=== PATIENT | female | born 1970 | race African-American/Black ===

== ENCOUNTER 2016-09-06 15:34 | Emergency (ER) | payer BC, OTHER ==
[2016-09-06 15:43] VITALS: BP 111/74; PULSE 86; TEMP 97.5; BMI 32.0
[2016-09-06] MEDS ORDERED: KETOROLAC TROMETHAMINE 60 MG/2 ML VIAL IM ONE (16:52)
[2016-09-06] MEDS ORDERED: KETOROLAC TROMETHAMINE 60 MG/2 ML VIAL ONE (16:54)
--- NOTE | 2016-09-06 17:13 | PDOC ---
History of Present Illness - General Chief Complaint: Sore Throat Stated Complaint: FEVER, THROAT PAIN Time Seen by Provider: 09/06/16 16:33 - History of Present Illness Initial Comments: 09/06/16 16:53 CHIEF COMPLAINT: fever, sore throat, shoulder pain HISTORY OF PRESENT ILLNESS: 46 yo F with hx of herniated discs presents to fast track with sore throat since yesterday and fever since this morning. Patient states she took Tylenol earlier today. She also complains of mild cough, sneezing, and runny nose. She reports working at [employer] and has had some sick customers recently. She also additionally complains of R shoulder pain that she has had for "a couple months." She denies any trauma or injury to the area but states "I often have to hand things out the window to customers and stretch my arm out." No recent travel or sick contacts. 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 Former smoker. Denies alcohol, illicit drug use. SURGICAL HISTORY: Denies ALLERGIES: No known drug allergies REVIEW OF SYSTEMS General/Constitutional: Denies fever or chills. Denies weakness, weight change. HEENT: Denies change in vision. Denies ear pain or discharge. Denies sore throat. Cardiovascular: Denies chest pain or shortness of breath. Respiratory: Denies cough, wheezing, or hemoptysis. Gastrointestinal: Denies nausea, vomiting, diarrhea or constipation. Denies rectal bleeding. Genitourinary: Denies dysuria, frequency, or change in urination. Musculoskeletal: R shoulder pain. Denies joint or muscle swelling or pain. Denies neck or back pain. Skin and breasts: Denies rash or easy bruising. Neurologic: Denies headache, vertigo, loss of consciousness, or loss of sensation. PHYSICAL EXAM General Appearance: Well-appearing, appropriately dressed. No apparent distress , no intoxication. HEENT: Post nasal drip, swollen turbinates. EOMI, PERRLA, normal ENT inspection , normal voice, TMs normal, pharynx normal. No conjunctival pallor. No photophobia, scleral icterus. Neck: Supple. Trachea midline. No tenderness, rigidity, carotid bruit, stridor , lymphadenopathy, or thyromegaly. Respiratory/Chest: Lungs CTAB. Cardiovascular: RRR. S1, S2. Lymphatic: No adenopathy, tenderness. Musculoskeletal/Extremities: Tenderness to anterolateral shoulder. +Neer/ Gates test. +Empty can test. Normal inspection. FROM of all extremities, normal capillary refill. Pelvis Stable. No CVA tenderness. No tenderness to extremities, pedal edema, swelling, erythema or deformity. Integumentary: Appropriate color, dry, warm. No cyanosis, erythema, jaundice or rash Neurologic: automotive wholesale parts advisor II-XII intact. Fully oriented, alert. Appropriate mood/affect. Motor strength 5/5. No appreciable EOM palsy, facial droop or sensory deficit. 09/06/16 17:50 Past History - Past Medical History Allergies/Adverse Reactions: Allergies Allergy/AdvReac Type Severity Reaction Status Date / Time No Known Allergies Allergy Verified 09/06/16 15:40 Home Medications: Ambulatory Orders Ibuprofen 600 mg PO TID PRN #21 tablet 09/06/16 HTN: Yes Hypercholesterolemia: Yes Kidney Stones: Yes Suicide Attempt (Hx): No - Surgical History Cholecystectomy: Yes - Immunization History Immunization Up to Date: Yes - Psycho/Social/Smoking Cessation Hx Anxiety: No Suicidal Ideation: No Smoking History: Never smoked Have you smoked in the past 12 months: No Information on smoking cessation initiated: No Hx Alcohol Use: No Drug/Substance Use Hx: No Substance Use Type: None *Physical Exam - Vital Signs Last Vital Signs Temp Pulse Resp BP Pulse Ox 97.5 F L 86 20 111/74 98 09/06/16 15:41 09/06/16 15:41 09/06/16 15:41 09/06/16 15:41 09/06/16 15:41 Medical Decision Making - Medical Decision Making 09/06/16 17:13 46 yo F with hx of herniated discs presents to fast track with fever, throat pain, and shoulder pain. -Influenza, strep rapid swabs -60 mg Toradol IM Advised patient to take meds as prescribed and f/u with PMD. Advised patient to f/u with orthopedics for further evaluation of shoulder impingement vs rotator cuff injury. Patient verbalized understanding and agrees to plan. *DC/Admit/Observation/Transfer Diagnosis at time of Disposition: Viral syndrome Shoulder pain, right Qualifiers: Chronicity: chronic Qualified Code(s): M25.511 - Pain in right shoulder - Discharge Dispostion Disposition: HOME Condition at time of disposition: Stable Admit: No - Prescriptions Prescriptions: Ibuprofen 600 mg PO TID PRN #21 tablet PRN Reason: Pain Or Fever - Referrals Referrals: Tom Mustafa MD [Staff Physician] - - Patient Instructions Printed Discharge Instructions: DI for Shoulder Pain, DI for Viral Syndrome Additional Instructions: Please take medication as prescribed. Drink plenty of fluids and get lots of rest to recover from your illness. Follow up with your doctor next week if symptoms continue. If you experience persistent fever that does not go away with medication, nausea, vomiting, or you experience shortness of breath, chest pain, dizziness, or any new or worsening symptoms, please return to the ER. - Post Discharge Activity Work/School Note: Back to Work
== END 2016-09-06 18:37 | disposition home or self-care (01) ==
LOC: JERFT 15:34
PROC: 3E0233Z Introduction of Anti-inflammatory into Muscle, Percutaneous Approach (ICD-10-PCS; principal; 2016-09-06)
DX: B34.9 Viral infection, unspecified (principal); M25.511 Pain in right shoulder; Z87.891 Personal history of nicotine dependence
CPT/HCPCS: 87070; 87430; 87804; 99281-25

== ENCOUNTER 2018-04-13 06:14 | Day surgery (SDC) | payer OTHER ==
[2018-02-04 14:25] VITALS: BMI 32.9
[~2018-04-13 06:14] MED LIST: BUPIVACAINE HCL/PF 0.25% (2.5MG/ML) 10 ML VIAL IJ ONE; CEFAZOLIN 2 GM/D5W 2 GM/50 ML ML IVPB ONE; CEFAZOLIN 2 GM/D5W 2 GM/50 ML ML IVPB SCH; IBUPROFEN 800 MG/8 ML IJ IVPB PRN; PHENAZOPYRIDINE HCL 100 MG TABLET (FP) PO ONE
[2018-04-13] MEDS ORDERED: PHENAZOPYRIDINE HCL 100 MG TABLET (FP) PO ONE (07:19)
[2018-04-13] MEDS ORDERED: CEFAZOLIN 2 GM in DEXTROSE 5%-WATER - 100 ML IVPB ONE (07:19)
[2018-04-13] MEDS ORDERED: DEXAMETHASONE SOD PHOSPHATE/PF 10 MG/ML SDV ONE (07:20)
[2018-04-13] MEDS ORDERED: ROPIVACAINE HCL 0.5% 30ML VIAL ONE (07:20)
[2018-04-13] MEDS ORDERED: MIDAZOLAM HCL 2 MG/2 ML SINGLE DOSE VIAL ONE ×2 (07:21)
--- NOTE | 2018-04-13 07:25 | HP ---
History & Physical Update - History History: No Change - Physical Physical: No Change - Assessment Assessment: No Change - Plan Plan: No Change (Initial H&P is located in patient's paper chart. No new complaints or medications. Here today for elective robotic assisted hysterectomy with bilateral salpingectomy)
[2018-04-13] MEDS ORDERED: ceFAZolin SODIUM 1 GM VIAL ONE ×2 (07:28→16:11)
[2018-04-13] MEDS ORDERED: BUPIVACAINE HCL/PF 0.25% (2.5MG/ML) 10 ML VIAL ONE (08:44)
[2018-04-13] MEDS ORDERED: ceFAZolin SODIUM 1 GM VIAL IVPB ONE (09:02)
[2018-04-13] MEDS ORDERED: BUPIVACAINE HCL/PF 0.25% (2.5MG/ML) 10 ML VIAL IJ ONE (10:45)
--- NOTE | 2018-04-13 11:13 | OP ---
Operative Note - Note: Operative Date: 04/13/18 Pre-Operative Diagnosis: Leiomyoma of uterus Operation: Robotic total hysterectomy with bilateral salpingectomy Post-Operative Diagnosis: Same as Pre-op Surgeon: Estefani Best Search Engine Optimization Manager: Lyle Madrigal (Kinga Fortune PA-C 2nd assist) Anesthesiologist/BIOPHYSICS SCIENTIST: Vasu Lindquist Anesthesia: General Specimens Removed: uterus and biltaeral tubes Estimated Blood Loss (mls): 50 Drains, Volume Out (mls): 450 (villareal/orange-pyridium) Fluid Volume Replaced (mls): 750 Operative Report Dictated: Yes
--- NOTE | 2018-04-13 11:14 | SURG ---
Surgery Clinical Appeals Rn Note Clinical Appeals Rn: Lyle Madrigal PA-C Date of Service: 04/13/18 Diagnosis: Leiomyomatous uterus Procedure: Robotic hysterectomy with bilateral salpingectomy I was present for the entirety of the operative procedure. For further detail, please refer to operative report. Visit type - Case Type Case Type: Scheduled - New patient This patient is new to me today: Yes Date on this admission: 04/13/18
[2018-04-13] MEDS ORDERED: PROMETHAZINE HCL 25 MG/1 ML VIAL IVPUSH PRN (12:59)
[2018-04-13] MEDS ORDERED: oxyCODONE HCL 5 MG TABLET PO PRN (12:59)
[2018-04-13] MEDS ORDERED: PATIENT'S OWN MEDICATION (NON-FORMULARY) (Oxycodone Hcl [Oxycodone Hcl] 5 MG) PO PRN (13:29)
[2018-04-13] MEDS: ACETAMINOPHEN 325 MG TABLET (FP) PO SCH ×2 (14:00→18:17)
[2018-04-13] MEDS ORDERED: ENOXAPARIN NA (PORCINE) 40 MG/0.4 ML DISP.SYRIN SQ SCH (14:45)
[2018-04-13] MEDS ORDERED: ONDANSETRON 4 MG/2 ML VIAL IVPUSH PRN (15:06)
[2018-04-13] MEDS ORDERED: DEXTROSE 5%-WATER - 50 ML IVPB ONE (16:11)
[2018-04-13] MEDS: CEFAZOLIN 1 GM in DEXTROSE 5%-WATER - 50 ML IVPB SCH (16:26)
--- NOTE | 2018-04-13 18:08 | OP ---
Operative Note - Note: Operative Date: 04/13/18 Pre-Operative Diagnosis: Leomyomatous Uterus. Anemia. Menorrhagia Operation: Laparoscopic Total Robotic Hysterectomy. Bilateral Salpingectomy Findings: Leiomyomatous Uterus 12 cm Post-Operative Diagnosis: Same as Pre-op Surgeon: Estefani Best Fixed Income Analyst: Lyle Madrigal Anesthesia: General Specimens Removed: Uterus Cervix and bilateral fallopian tubes Estimated Blood Loss (mls): 50 Operative Report Dictated: Yes
[2018-04-13 18:59] LABS: BASO % 0.2 % (0-2.0); EOS % 0.1 % (0-4.5); HEMATOCRIT 35.9 % (32.4-45.2); HEMOGLOBIN 11.3 GM/dL (10.7-15.3); LYMPH % 4.8 % (8-40); MCH 24.1 pg (25.7-33.7); MCHC 31.5 g/dl (32.0-36.0); MEAN CELL VOLUME 76.4 fl (80-96); MEAN PLT VOLUME 10.7 fl (7.5-11.1); MONO % 0.6 % (3.8-10.2); NEUT % 94.3 % (42.8-82.8); PLATELET COUNT 216 K/MM3 (134-434); RDW 16.4 % (11.6-15.6)
[2018-04-13 19:21] LABS: ANISOCYTOSIS 1+; PLATELET ESTIMATE ADEQUATE
[2018-04-13] MEDS: LACTATED RINGERS SOLUTION 1,000 ML IV SCH (21:33)
[2018-04-13] MEDS ORDERED: SERTRALINE HCL 50 MG TABLET (FP) PO SCH (22:00)
[2018-04-14] MEDS ORDERED: ceFAZolin SODIUM 1 GM VIAL ONE (00:47)
[2018-04-14] MEDS ORDERED: DEXTROSE 5%-WATER - 50 ML IVPB ONE (00:47)
[2018-04-14] MEDS: CEFAZOLIN 1 GM in DEXTROSE 5%-WATER - 50 ML IVPB SCH (00:51)
[2018-04-14] MEDS: ACETAMINOPHEN 325 MG TABLET (FP) PO SCH ×3 (00:52→12:11)
[2018-04-14] MEDS: oxyCODONE HCL 5 MG TABLET PO PRN ×3 (01:00→10:48)
--- NOTE | 2018-04-14 05:58 | PN ---
Progress Note (SOAP) - Subjective Chief Complaint: Pt ambulating and voiding DOing well + flatus - Current Medications Current Medications: Active Medications Acetaminophen (Tylenol -) 650 mg PO Q6H [facility] Stop: 04/16/18 12:59 Last Admin: 04/14/18 00:52 Dose: 650 mg Enoxaparin Sodium (Lovenox -) 40 mg SQ DAILY [facility] Lactated Ringer's (Lactated Ringers Solution) 1,000 mls @ 125 mls/hr IV ASDIR [facility] Last Admin: 04/13/18 21:33 Dose: 125 mls/hr Influenza Virus Vaccine Quadrival (Flulaval Quad [id number]) 60 mcg IM .ONCE ONE Stop: 04/14/18 14:01 Lisinopril (Prinivil) 10 mg PO DAILY [facility] Metoprolol Succinate (Toprol Xl -) 25 mg PO DAILY [facility] Ondansetron HCl (Zofran Injection) 4 mg IVPUSH Q6H PRN PRN Reason: NAUSEA Oxycodone HCl (Roxicodone -) 5 mg PO Q3H PRN PRN Reason: PAIN LEVEL 1-5 Oxycodone HCl (Roxicodone -) 10 mg PO Q3H PRN PRN Reason: PAIN LEVEL 6-10 Last Admin: 04/14/18 01:00 Dose: 10 mg Promethazine HCl (Phenergan Injection -) 12.5 mg IVPUSH Q6H PRN PRN Reason: NAUSEA-FOR RESCUE AFTER 15 MIN Sertraline HCl (Zoloft -) 100 mg PO [facility] Last Admin: 04/13/18 21:31 Dose: 100 mg - Objective Vital Signs: Vital Signs Temperature 98.1 F 04/14/18 02:00 Pulse Rate 53 L 04/14/18 02:00 Respiratory Rate 18 04/14/18 02:00 Blood Pressure 147/73 04/14/18 02:00 O2 Sat by Pulse Oximetry (%) 98 04/13/18 22:00 Constitutional: Yes: Well Nourished, No Distress Neck: Yes: WNL Respiratory: Yes: WNL Gastrointestinal: Yes: WNL, Soft, Abdomen, Obese Musculoskeletal: Yes: WNL Extremities: Yes: WNL Peripheral Pulses WNL: No Wound/Incision: Yes: Dressing Dry and Intact Neurological: Yes: WNL, Alert, Oriented Labs Lab Results: CBC, BMP 04/13/18 18:00 Assessment/Plan POD 1 Stable Elevated WBC Anemia Plan \RTO 2 weeks DC home on augmentin iron daily daily
[2018-04-14] MEDS: LACTATED RINGERS SOLUTION 1,000 ML IV SCH (06:22)
[2018-04-14 06:30] VITALS: TEMP 98.2
[2018-04-14 08:03] LABS: BASO % 0.2 % (0-2.0); HEMATOCRIT 33.7 % (32.4-45.2); HEMOGLOBIN 10.4 GM/dL (10.7-15.3); LYMPH % 7.4 % (8-40); MCH 23.6 pg (25.7-33.7); MCHC 30.8 g/dl (32.0-36.0); MEAN CELL VOLUME 76.5 fl (80-96); MEAN PLT VOLUME 9.5 fl (7.5-11.1); MONO % 3.7 % (3.8-10.2); NEUT % 88.7 % (42.8-82.8); PLATELET COUNT 201 K/MM3 (134-434); RDW 16.1 % (11.6-15.6); WHITE BLOOD COUNT 19.6 K/mm3 (4.0-10.0)
[2018-04-14 08:42] LABS: ANION GAP 10 MMOL/L (8-16); BLOOD UREA NITROGEN 9 mg/dL (7-18); CALCIUM 9.1 mg/dL (8.5-10.1); CHLORIDE 109 mmol/L (98-107); CO2 23 mmol/L (21-32); CREATININE 0.8 mg/dL (0.55-1.3); GLUCOSE,RANDOM 114 mg/dL (74-106); POTASSIUM 4.3 mmol/L (3.5-5.1); SODIUM 143 mmol/L (136-145)
[2018-04-14 09:08] VITALS: BP 126/76; PULSE 63
[2018-04-14] MEDS ORDERED: ENOXAPARIN NA (PORCINE) 40 MG/0.4 ML DISP.SYRIN SQ SCH (10:00)
[2018-04-14] MEDS ORDERED: metoPROLOL SUCCINATE 25 MG TAB.SR.24H (FP) PO SCH ×2 (10:00)
[2018-04-14] MEDS ORDERED: LISINOPRIL 10 MG TABLET (FP) PO SCH ×2 (10:00)
--- NOTE | 2018-04-14 13:39 | OP ---
DATE OF OPERATION: 04/13/2018 PREOPERATIVE DIAGNOSIS: Leiomyomatous uterus and pelvic pain. OPERATION: Laparoscopic robotic total hysterectomy and bilateral salpingectomy. SURGEON: Estefani Best MD IMPROVEMENT COORDINATOR: RILEY Stringer IRONING MACHINE OPERATOR: Vasu Lindquist CRNA ANESTHESIA: General. FINDINGS: Uterus cervix & tubes noted to be removed. Ovaries were normal. VOLUME OUT: 450 mL in the Andrade. Pyridium was given prior preoperatively. PROCEDURE: Patient was taken to the operating room, placed in dorsal lithotomy position, prepped and draped in the usual sterile fashion. A time-out was performed in accordance with hospital regulations. Speculum was placed in the vagina. Anterior lip of the cervix was grasped with a single-tooth tenaculum. Cervix was then dilated to accommodate the large VCare device. Attention was then drawn to the umbilicus, where an 8-mm umbilical incision was made. Veress needle was inserted into the cavity. Approximately 3-4 L of CO2 was insufflated in the cavity. Veress needle was then removed, and an 8-mm trocar was inserted. Laparoscope and camera were attached. Visualization revealed a lipomatous uterus, Normal tubes and ovaries. Three trocars were placed on the left side, one in the upper abdomen, vessel sealer, and a 5-mm incision was made and AirSeal cannula was inserted. A robotic trocar was inserted parallel to the umbilical incision under direct visualization, and trocar positions were confirmed. Two trocars were also placed on the right parallel to the umbilical incision. After 8-mm incisions were made, trocars were inserted, both under direct visualization. Patient was placed in steep Trendelenburg, and the da Jacob robot was then side-docked to the patients arm. Trocars were then attached to the da Jacob robot. Placements were confirmed. The instruments were then placed, EndoShears and tenaculum on the right and vessel sealer on the left. After instruments were placed, attention was then directed to the console where control of the console was done. Tenaculum was then used to elevate the uterus to the right side, and the utero-ovarian ligament was clamped and cut on the left. Uterine arteries identified and clamped and cut. This included uterine inflexion with an in-turned bladder was bluntly dissected out of the operative field. VCare device was seen, and cardinal ligament was identified and clamped and cut down to the level of the cervix. EndoShears were then used to cut the vagina, and same procedure was repeated on the right side. The uterus was then elevated to the left side, and utero-ovarian ligament was identified, clamped, and cut, cardinal ligament was identified and clamped and cut, and uterine arteries were identified, clamped and cute, and the bladder had been bluntly dissected out of the operative field. Then, EndoShears were used to make a circumferential incision around the vagina, and cervix was then removed. Uterus and cervix were removed. Bilateral salpingectomies were performed with the vessel sealer, and uterus and tubes, and cervix were then removed from the vagina. The 2-0 V-Loc suture was passed through the vagina into the abdomen, and da Jacob was used to close the cuff using 2-0 V-Loc suture in a continuous fashion and oversewn in the middle. Suture was then cut. Suture was then removed out of the abdomen. Hemostasis was achieved. All pedicles were noted to be normal. Ureters were identified and found to be both peristalsing, and all instruments were removed. CO2 was removed from the abdomen. The da Jaren robot was undocked and removed from the patients bedside, and incisions were then closed using 3-0 Vicryl in a subcuticular fashion after CO2 was removed. Patient tolerated the procedure well. Estimated blood loss was 50 mL. The count was correct. Pack count was normal. Patient had tolerated the procedure well and was taken to recovery room in stable condition. Nba [id number] MTDD
--- NOTE | 2018-04-15 09:49 | PATH ---
Surgical Pathology Report Patient Name: CHACORTA SHERIDAN [facility]. Rec. #: [id number] /Age/Gender: 1970 (Age: 48) / F Account: [id number] Location: AMBULATORY SURG Taken: 04/13/2018 Received: 04/13/2018 Reported: 04/15/2018 Physicians: Estefani Best M.D. Specimen(s) Received A: UTERUS AND CERVIX B: RIGHT FALLOPIAN TUBE C: LEFT FALLOPIAN TUBE Clinical History Pelvic pain, elective sterilization Final Diagnosis A. UTERUS AND CERVIX, ROBOTIC ASSISTED LAPAROSCOPIC HYSTERECTOMY: PROLIFERATIVE ENDOMETRIUM. MYOMETRIUM WITH ADENOMYOSIS. UNREMARKABLE CERVIX. UNREMARKABLE SEROSA. B. FALLOPIAN TUBE, RIGHT, SALPINGECTOMY: UNREMARKABLE FALLOPIAN TUBE (INCLUDING FULL LUMINAL PORTION AND FIMBRIATED END). C. FALLOPIAN TUBE, LEFT, SALPINGECTOMY: UNREMARKABLE FALLOPIAN TUBE (INCLUDING FULL LUMINAL PORTION AND FIMBRIATED END). Electronically Signed Bee Escalante M.D. Gross Description A. Received in formalin labeled "uterus and cervix" is a 181 g uterus without attached adnexa. The uterus measures 7 cm from superior to inferior, 7 cm from left to right and 5 cm from anterior to posterior. The serosa is mcnulty-pink and smooth. The endometrial cavity measures 4 cm in length and 4 cm from cornu to cornu. Attached cervix measures 4 x 3 cm. Ectocervix is smooth and glistening without identifiable lesions. Endocervix is mcnulty and trabeculated. The endometrium is mcnulty focally hemorrhagic, measuring up to 0.1 cm in thickness. The myometrium is mcnulty-pink and focally trabeculated, measuring up to 1.5 cm in thickness. Integration Director sections are submitted in 5 cassettes as follows: 1- anterior cervix; 2- posterior cervix 3-anterior endomyometrium; 4-posterior endomyometrium; 5-additional endometrium. B. Received in formalin labeled "right fallopian tube," is a 5 x 0.5 cm in length fimbriated fallopian tube. The outer surface is mcnulty-hanson. Sectioning reveals an unremarkable lumen. Integration Director sections are submitted in 2 cassettes as follows: 1-fimbria; 2-cross sections of fallopian tube. C. Received in formalin labeled "left fallopian tube," is a 6 x 0.5 cm in length fimbriated fallopian tube. The outer surface is mcnulty-hanson. Sectioning reveals an unremarkable lumen. Integration Director sections are submitted in 2 cassettes as follows: 1-fimbria; 2-cross sections of fallopian tube. OLIVER/04/13/2018 wayne/04/13/2018
== END 2018-04-14 15:15 | disposition home or self-care (01) ==
LOC: JASUSAT 06:14 → EDSTATUS 08:00 → J3W 14:23 → JASUSAT 04-14 15:15
PROVIDERS: ATTEND Obstetrics & Gynecology
PROC: 8E0W4CZ Robotic Assisted Procedure of Trunk Region, Percutaneous Endoscopic Approach (ICD-10-PCS; 2018-04-13)
PROC: 0UT9FZZ Resection of Uterus, Via Natural or Artificial Opening With Percutaneous Endoscopic Assistance (ICD-10-PCS; principal; 2018-04-13 08:00)
PROC: 0UT7FZZ Resection of Bilateral Fallopian Tubes, Via Natural or Artificial Opening With Percutaneous Endoscopic Assistance (ICD-10-PCS; 2018-04-13 08:00)
DX: N80.0 Endometriosis of uterus (principal); R10.2 Pelvic and perineal pain
CPT/HCPCS: 58552; S2900; 36415; 80048; 84703; 85025; 86850; 86900; 86901; 88302-TC; 88305-TC; 90686; 94760; G0008

== ENCOUNTER 2021-04-25 18:09 | Emergency (ER) | payer OTHER ==
[2021-04-25 18:18] VITALS: BP 173/92; PULSE 67; TEMP 97.7; BMI 39.0
[2021-04-25] MEDS ORDERED: LIDOCAINE 5% TOPICAL PATCH TP ONE (20:30)
[2021-04-25] MEDS ORDERED: KETOROLAC TROMETHAMINE 60 MG/2 ML VIAL IM ONE (20:30)
[2021-04-25] MEDS ORDERED: ACETAMINOPHEN 325 MG TABLET (FP) PO ONE (20:30)
[2021-04-25] MEDS ORDERED: METHOCARBAMOL 500 MG TABLET PO ONE (20:31)
[2021-04-25] MEDS ORDERED: ACETAMINOPHEN 500 MG TABLET (FP) ONE (20:40)
[2021-04-25] MEDS ORDERED: LIDOCAINE 5% TOPICAL PATCH ONE (20:40)
[2021-04-25] MEDS ORDERED: KETOROLAC TROMETHAMINE 15 MG/ML VIAL ONE (20:40)
[2021-04-25] MEDS ORDERED: METHOCARBAMOL 500 MG TABLET ONE (20:40)
[2021-04-25] MEDS ORDERED: LIDOCAINE PATCH REMOVAL MC ONE (22:00)
== END 2021-04-25 21:58 | disposition home or self-care (01) ==
LOC: JERFT 18:09
PROC: 3E0233Z Introduction of Anti-inflammatory into Muscle, Percutaneous Approach (ICD-10-PCS; principal; 2021-04-25)
DX: M54.50 Low back pain, unspecified (principal)
CPT/HCPCS: 72070-TC-FY; 72100-TC-FY; 99284-25

== ENCOUNTER 2022-02-18 16:36 | Emergency (ER) | payer BC, OTHER ==
[2022-02-18 17:26] VITALS: BP 134/82; PULSE 58; RESP 18; TEMP 98.2; BMI 31.8
[2022-02-18] MEDS ORDERED: DIPHTH,PERTUSS(ACELL),TET 0.5 ML DISP.SYRIN IM ONE ×2 (18:47→18:54)
== END 2022-02-18 19:36 | disposition home or self-care (01) ==
LOC: JERFT 16:36 → JER 16:36 → JERFT 19:36
PROC: 0HQCXZZ Repair Left Upper Arm Skin, External Approach (ICD-10-PCS; principal; 2022-02-18)
PROC: 3E0234Z Introduction of Serum, Toxoid and Vaccine into Muscle, Percutaneous Approach (ICD-10-PCS; 2022-02-18)
DX: S41.112A Laceration without foreign body of left upper arm, initial encounter (principal); W19.XXXA Unspecified fall, initial encounter
CPT/HCPCS: 90715; 99282-25

== ENCOUNTER 2022-07-08 04:18 | Day surgery (SDC) | payer BC ==
[2022-07-04 10:21] VITALS: BMI 33.6
[2022-07-08] MEDS ORDERED: DEXAMETHASONE SOD PHOSPHATE 10 MG/1 ML VIAL ONE (11:44)
[2022-07-08] MEDS ORDERED: ROPIVACAINE HCL 0.5% 30ML VIAL ONE (11:44)
[2022-07-08] MEDS ORDERED: MIDAZOLAM HCL 2 MG/2 ML SINGLE DOSE VIAL ONE (11:45)
[2022-07-08] MEDS ORDERED: FENTANYL CITRATE/PF 50 MCG/ML VIAL ONE ×2 (12:35→13:57)
[2022-07-08] MEDS ORDERED: PROPOFOL 20 ML ONE (12:35)
[2022-07-08] MEDS ORDERED: DEXAMETHASONE SOD PHOSPHATE 4 MG/1 ML VIAL ONE (13:05)
[2022-07-08] MEDS ORDERED: ceFAZolin SODIUM 1 GM VIAL ONE (13:05)
[2022-07-08] MEDS ORDERED: ONDANSETRON 4 MG/2 ML VIAL ONE ×2 (13:05→14:29)
[2022-07-08] MEDS ORDERED: ceFAZolin SODIUM 1 GM VIAL IVPB ONE (13:08)
[2022-07-08] MEDS ORDERED: oxyCODONE HCL 5 MG TABLET PO PRN (15:11)
[2022-07-08] MEDS ORDERED: ONDANSETRON 4 MG/2 ML VIAL IVPUSH PRN (15:11)
[2022-07-08] MEDS ORDERED: LACTATED RINGERS SOLUTION 1,000 ML IV SCH (15:15)
[2022-07-08 16:16] VITALS: RESP 20; TEMP 97.3
[2022-07-08 18:00] VITALS: BP 129/78; PULSE 83
== END 2022-07-08 17:25 | disposition home or self-care (01) ==
LOC: JASU-SURG 04:18
PROVIDERS: ATTEND Orthopaedic Surgery
PROC: 0PB94ZZ Excision of Right Clavicle, Percutaneous Endoscopic Approach (ICD-10-PCS; principal; 2022-07-08 11:30)
PROC: 0LQ10ZZ Repair Right Shoulder Tendon, Open Approach (ICD-10-PCS; 2022-07-08 11:30)
DX: M75.41 Impingement syndrome of right shoulder (principal); M19.011 Primary osteoarthritis, right shoulder; M75.101 Unspecified rotator cuff tear or rupture of right shoulder, not specified as traumatic; M75.01 Adhesive capsulitis of right shoulder; M71.9 Bursopathy, unspecified
CPT/HCPCS: 88304-TC; 94760; C1713; J1100

== ENCOUNTER 2022-07-29 21:24 | Emergency (ER) | payer BC ==
[2022-07-29 21:29] VITALS: RESP 20; TEMP 97.8; BMI 31.8
[2022-07-29] MEDS ORDERED: methylPREDNISolone NA SUCC 125 MG/2 ML VIAL ONE (21:36)
[2022-07-29] MEDS ORDERED: methylPREDNISolone NA SUCC 125 MG/2 ML VIAL IVPB ONE (21:39)
[2022-07-29] MEDS ORDERED: FAMOTIDINE 20 MG/50 ML IVPB 20 MG/50 ML MG IVPB ONE (21:39)
[2022-07-29] MEDS ORDERED: SODIUM CHLORIDE 1,000 ML IV STA (21:39)
[2022-07-29] MEDS ORDERED: EPINEPHrine 1:1,000 1,000 MCG/ML ML SQ STA (21:47)
[2022-07-29] MEDS ORDERED: EPINEPHrine/PF 1 MG/1 ML (1:1,000) AMPULE ONE (21:47)
[2022-07-29 22:09] LABS: BASO % 0.9 % (0-2.0); EOS % 3.1 % (0-4.5); HEMATOCRIT 38.7 % (32.4-45.2); LYMPH % 32.7 % (8-40); MCH 23.9 pg (25.7-33.7); MCHC 31.1 g/dl (32.0-36.0); MEAN CELL VOLUME 76.9 fl (80-96); MEAN PLT VOLUME 8.9 fl (7.5-11.1); NEUT % 57.3 % (42.8-82.8); PLATELET COUNT 225 10^3/uL (134-434); RBC 5.03 M/mm3 (3.60-5.2); RDW 15.4 % (11.6-15.6); WHITE BLOOD COUNT 10.4 K/mm3 (4.0-10.0)
[2022-07-29 22:50] LABS: CALCIUM 9.5 mg/dL (8.5-10.1)
[2022-07-29 22:51] LABS: BLOOD UREA NITROGEN 14.9 mg/dL (7-18)
[2022-07-29 22:54] LABS: CREATININE 0.8 mg/dL (0.55-1.3)
[2022-07-29 22:56] LABS: BILIRUBIN,TOTAL 0.4 mg/dL (0.2-1); TOT PROT 7.3 g/dl (6.4-8.2)
[2022-07-29 23:39] VITALS: BP 144/91; PULSE 101
[2022-07-30] MEDS ORDERED: hydrOXYzine PAMOATE 25 MG CAPSULE (FP) PO ONE ×2 (01:23→01:37)
== END 2022-07-30 03:24 | disposition home or self-care (01) ==
LOC: JER 21:24
PROC: 3E033GC Introduction of Other Therapeutic Substance into Peripheral Vein, Percutaneous Approach (ICD-10-PCS; principal; 2022-07-29)
PROC: 3E023GC Introduction of Other Therapeutic Substance into Muscle, Percutaneous Approach (ICD-10-PCS; principal; 2022-07-29)
DX: T78.40XA Allergy, unspecified, initial encounter (principal)
CPT/HCPCS: 0241U-QW; 36415; 71046-TC-FY; 80053; 84439; 84443; 85025; 93005; 93010; 99285-25

== ENCOUNTER 2023-05-16 10:27 | Emergency (ER) | payer BC ==
[2023-05-16 10:33] VITALS: BP 150/98; PULSE 68; RESP 17; TEMP 98.6; BMI 34.7
[2023-05-16 11:49] LABS: EPI CELLS 16 /uL (0-25.1); HYALINE CASTS 5 /uL (0-3.1); PH,URINE 5.5 (5.0-8.0); URINE APPEARANCE CLOUDY; URINE BACTERIA >9,000 /uL (0-1359); URINE BILIRUBIN NEGATIVE (NEGATIVE); URINE COLOR YELLOW; URINE GLUCOSE (UA) NEGATIVE (NEGATIVE); URINE KETONE NEGATIVE (NEGATIVE); URINE LEUK ESTERASE 2+ (NEGATIVE); URINE NITRITE POSITIVE (NEGATIVE); URINE PROTEIN TRACE (NEGATIVE); URINE RBC 23 /uL (0-23.9); URINE WBC 790 /uL (0-25.8)
[2023-05-16 11:53] LABS: HCG,QUALITATIVE URINE Positive
== END 2023-05-16 13:16 | disposition home or self-care (01) ==
LOC: JERFT 10:27
DX: R10.30 Lower abdominal pain, unspecified (principal); N30.01 Acute cystitis with hematuria; M54.9 Dorsalgia, unspecified; R30.0 Dysuria
CPT/HCPCS: 36415; 81003; 84702; 84703; 87086; 87186; 99283-25

== ENCOUNTER 2024-03-14 13:49 | Emergency (ER) | payer BC ==
[2024-03-14 13:57] VITALS: BP 123/78; PULSE 83; RESP 17; TEMP 98.6; BMI 29.2
[2024-03-14] MEDS ORDERED: ACETAMINOPHEN 325 MG TABLET (FP) ONE (14:38)
[2024-03-14] MEDS ORDERED: IBUPROFEN 400 MG TABLET (FP) PO ONE (14:39)
[2024-03-14] MEDS: IBUPROFEN 400 MG TABLET (FP) PO ONE (14:47)
[2024-03-14] MEDS: ACETAMINOPHEN 325 MG TABLET (FP) PO ONE (14:47)
[2024-03-14 16:40] LABS: HIV INTERPRETATION NEGATIVE (NEGATIVE)
== END 2024-03-14 15:29 | disposition home or self-care (01) ==
LOC: JER 13:49
DX: M25.531 Pain in right wrist (principal); X50.1XXA Overexertion from prolonged static or awkward postures, initial encounter
CPT/HCPCS: 36415; 73110-TC-RT-FY; 73130-TC-RT-FY; 86803; 87389; 99284-25